=== PATIENT | male | born 1945 | race Caucasian/White ===

== ENCOUNTER 2024-01-12 07:57 | Outpatient (CLI) | payer MEDICARE ==
[2024-01-12 08:13] LABS: BASOPHILS % (AUTO) 0.3 %; EOSINOPHILS # (AUTO) 0.3 10^3/uL (0.0-0.7); HCT - HEMATOCRIT 37.2 % (42.0-52.0); HGB - HEMOGLOBIN 12.3 g/dL (14.0-18.0); LYMPHOCYTES # (AUTO) 1.5 10^3/uL (1.5-3.5); LYMPHOCYTES % (AUTO) 25.1 %; MEAN CORPUSCULAR HEMOGLOBIN 30.9 pg (27.0-31.0); MEAN CORPUSCULAR HGB CONC 33.1 g/dL (32.0-36.0); MEAN CORPUSCULAR VOLUME 93.5 fL (80.0-94.0); MEAN PLATELET VOLUME 9.3 fL (7.4-11.4); MONOCYTES # (AUTO) 0.5 10^3/uL (0.0-1.0); NEUTROPHILS # (AUTO) 3.6 10^3/uL (1.5-6.6); NEUTROPHILS % (AUTO) 60.4 %; PLT - PLATELET COUNT 226 10^3/uL (130-450); RED BLOOD COUNT 3.98 10^6/uL (4.70-6.10); RED CELL DISTRIBUTION WIDTH 13.3 % (12.0-15.0)
[2024-01-12 08:32] LABS: ALBUMIN 3.9 g/dL (3.2-5.5); ALKALINE PHOSPHATASE 62 IU/L (42-121); ALT ALANINE AMINOTRANSFERASE 13 IU/L (10-60); AST ASPARTATE AMINOTRANSFERASE 14 IU/L (10-42); BILIRUBIN,TOTAL 0.7 mg/dL (0.2-1.0); BUN - BLOOD UREA NITROGEN 17 mg/dL (6-20); CALCIUM 9.2 mg/dL (8.5-10.3); CARBON DIOXIDE - CO2 29 mmol/L (21-32); CHLORIDE 103 mmol/L (101-111); CHOL/HDL RATIO 3.5 (<5.0); CHOLESTEROL 169 mg/dL; GFR - MDRD 72 (>89); GLUCOSE 104 mg/dL (74-104); HDL CHOLESTEROL 48 mg/dL; LDL CHOLESTEROL,CALCULATED 96 mg/dL; SODIUM 136 mmol/L (135-145); TOTAL PROTEIN 7.8 g/dL (6.4-8.9); TRIGLYCERIDES 124 mg/dL; VLDL CHOLESTEROL 25 mg/dL
== END 2024-01-12 07:58 | disposition home or self-care (01) ==
LOC: LAB 07:57
PROVIDERS: ATTEND Nurse Practitioner Family
DX: I10 Essential (primary) hypertension (principal); E78.5 Hyperlipidemia, unspecified; Z12.5 Encounter for screening for malignant neoplasm of prostate; D47.2 Monoclonal gammopathy
CPT/HCPCS: 36415; 80053; 80061; 84443; 85025; G0103; 83721; 84153

== ENCOUNTER 2024-03-09 09:07 | Outpatient (CLI) | payer MEDICARE ==
--- NOTE | 2024-03-09 19:51 | XRAY Report ---
PROCEDURE: Wrist 3+V RT INDICATIONS: RIGHT WRIST PAIN TECHNIQUE: 3 views of the wrist were acquired. COMPARISON: None. FINDINGS: Bones: No acute fractures or dislocations. No suspicious bony lesions. Moderate to severe degenerat marianne changes of the 1st carpometacarpal joint. Small glenoid osteophyte is seen at the 2nd metacarpal head on oblique view. Mild changes of the 1st metacarpophalangeal joint and radioscaphoid joint. A fe w scattered postsurgical lucencies are seen. Soft tissues: No suspicious soft tissue calcifications. IMPRESSION: 1.Moderate to severe 1st carpometacarpal osteoarthrosis. Additional mild degenerative changes in the wrist. 2.Scattered juxta-articular lucencies may represent subchondral cystic changes versus osseous erosion s. Recommend correlation with clinical findings and possibly serologies to exclude an underlying infl ammatory arthritis. Reviewed by: Balaji Sheriff MD on 03/09/2024 7:49 PM PDT Approved by: Balaji Sheriff MD on 03/09/2024 7:49 PM PDT Station ID: [id number]
== END 2024-03-09 09:08 | disposition home or self-care (01) ==
LOC: DI 09:07
PROVIDERS: ATTEND Physician Assistant Surgical
DX: M18.11 Unilateral primary osteoarthritis of first carpometacarpal joint, right hand (principal); M19.031 Primary osteoarthritis, right wrist

== ENCOUNTER 2024-03-11 15:32 | Outpatient (CLI) | payer MEDICARE ==
--- NOTE | 2024-03-11 16:31 | Sleep Patient Instructions ---
Sleep Center Visit Summary - Patient Visit Information Reason for Visit: Initial consultation - Patient Instructions Additional Instructions: You will continue with CPAP therapy with pressure set at 5-12 cmH2O. You will be completing a sleep study, either an in-lab polysomnography (PSG) or home sleep study (HST). You will follow-up in the sleep care office after the sleep study is completed to hear the results and talk about therapy, if needed. We encourage you to continue to try to lose weight. Please follow up with the sleep care office after sleep study. - Clinic Information Contact: [facility] [address] [place] [address] [email or web address] T: [phone]
--- NOTE | 2024-03-11 16:44 | SLEEP CARE CONSULTATION ---
Information from patient questionnaire entered by Gill Bhatia. I have reviewed and concur with the information entered by Gill Bhatia. This document represents the service I personally performed and the decisions made by , Mari Quinones ARNP. History of Present Illness Service Date and Time: 03/11/2024 1532 Reason for Visit: New patient, Previously diagnosed sleep apnea, sleep apnea on CPAP therapy Chief Complaint: reports: Other (Moved - Have CPAP machine but wants me to be checked) Date of Onset: 2015 Usual bedtime: 10:15 PM Time it takes to fall asleep: 5 mins Snores at night: Yes (Without CPAP) Observed to quit breathing while asleep: No (Maybe) Sleeps alone due to snoring: No Number of times waking at night: Every once in a while Reasons for waking at night: reports: Bathroom Toss, Turn, or Twitch while sleeping: No Recalls having dreams: Yes (Very seldom) Usually gets out of bed at: 5:30 - 6 AM Feels refreshed in the morning: Yes (Usually) Morning headache: No Sleepy or fatigued during the day: Yes (Sometimes) Ever fallen asleep while driving: No Takes day naps: No Dreams during day naps: No Prior sleep studies: Yes Year and Where: 11/2016 approximately - [facility] Additional HPI information: ZHEN LLAMAS was previsously diagnosed to have unknown, AHI unknown, sleep apnea-hypopnea syndrome and comes in today to establish care for CPAP therapy. - Parasomnia Symptoms Ever been unable to move upon waking from sleep: No Walks in sleep: No Talks in sleep: No Ever acted out dreams in sleep: No Ever felt weak in the knees when startled or emotional: No Bothered by creepy, crawly, restless sensations in legs: No Problems with memory or concentration: Yes (Short term memory) CPAP Compliance Data - Data Reviewed with Patient Average duration of nightly device use: 6 h 4 mins Compliance rate %: 93 (363/365 days used) Current pressure setting (cmH2O): 5 - 12 Average residual AHI: 1.0 Central apnea: 0.1 Obstructive apnea: 0.3 Hypopnea: 0.5 Average large leak: 0.9 L/min Compliance data discussion: He has a Resmed Airsesnse 11 that was setup in 08/2022. He gets his supplies from [employer] in [place]. He has been using a full face ResMed F20 mask. Subjective Patient concerns: reports: air blowing in eyes (maybe, has eyes tearing and sometimes gritty feeling in corner of eyes), condensation in mask/hose (minimal). denies: aerophagia, mask discomfort, mask leak noise, nasal congestion, dry mouth, nose, throat, epistaxis Observed to snore while using device: No Current pressure setting perceived as: comfortable On therapy, patient: reports: sleeping better, awakening more refreshed, being more awake and alert during the day, more rested overall. denies: drowsiness while driving Initial Ketchum Sleepiness Scale score: 10 (03/11/2024) Past Medical History Past Medical History: reports: Hypertension, Arthritis, GERD, Other (Right knee pain, large prostrate, carpal tunnel syndrome both wrists, heart PVCs) Social History The patient is retied. Patient is and lives in [place]. Have you smoked in the past 12 months: No Alcohol use: No Caffeine use: No Family History Family history of sleep disordered breathing: Yes Family Hx Sleep Apnea: Other: Snoring (Children), Sleep apnea - Treated, Sleep apnea - Untreated Allergies and Home Medications Known drug allergies: Yes (as listed) Drug allergies reviewed: Yes Home medication list reviewed: Yes (as listed) Allergy and home medication list: Allergies amoxicillin Allergy (Verified 03/11/24 16:16) Respiratory cephalexin [From Keflex] Allergy (Verified 03/11/24 16:16) Rash ciprofloxacin Allergy (Verified 03/11/24 16:16) Respiratory clarithromycin Allergy (Verified 03/11/24 16:16) Respiratory codeine Allergy (Verified 03/11/24 16:16) Respiratory meclizine Adverse Reaction (Verified 03/11/24 16:16) meloxicam Adverse Reaction (Verified 03/11/24 16:16) Dizziness tramadol Adverse Reaction (Verified 03/11/24 16:16) Cramps Medications: Pantoprazole 40 mg daily NeilMed sinus rinse Prebiotic Powder Probiotic Fiber Multivitamin vitamin A, B-Complex, C, D, Fish oil PreserVision ARED2 Losartan 50 mg low dose Aspirin 81 mg Metoprolol ER 25 mg Zinc Finasteride 5 mg Gallbladder Enzymes Xarelto 20 mg Ducosate sodium 100 mg Simvastatin 40 mg, skip Mon & Fri Famotidine 40 mg Dicyclomine 10 mg, prn Loratidine 10 mg, prn Review of Systems Weight loss over past 5 years: 5-6 Cardiovascular: reports: high blood pressure, other (pvcs) Respiratory: reports: shortness of breath Gastrointestinal: reports: heartburn, abdominal pain Neurological: reports: gait or balance problems Ear/Nose/Throat: reports: sinus problems, dry mouth/throat (when wake up) Musculoskeletal: reports: joint pain, neck pain, back pain Immunologic: reports: sneezing Physical Exam Vital signs obtained and entered by: Mari Chávez NP Blood Pressure: 141/74 Cuff size: long (right) Heart Rate: 70 O2 Saturation: 97 Height: 5 ft 7 in Weight: 201 lb 3.2 oz Body Mass Index: 31.5 BMI Classification: Obese Neck circumference: 16 Heart: regular rate and rhythm Lungs: clear bilaterally Impression and Plan 1. Obstructive Sleep Apnea-Hypopnea Syndrome, unknown, with good treatment compliance and good apnea control. On CPAP therapy, the patient has better sleep quality and is more rested overall. Patient states his doctor wanted him reevaluated for his sleep apnea. He does not have a copy of his last sleep study with him. He needs a DME supplier locally since he has moved from [place]. Once we have a sleep study we can set him up with a new DME supplier. We will get authorization for the sleep study and follow-up with him after that is completed. Patient's apnea severity and rationale for treatment to reduce apnea, improve sleep quality and reduce cardiovascular and cerebrovascular events was reviewed. I also reviewed the benefit of consistent device use of CPAP for hypertension, arrhythmia, gastric reflux. 2. Obesity, unspecified. Currently patients BMI is 31.5. Obesity increases the risk of apnea, CPAP pressure requirements and overall health risks especially cardiovascular and diabetes. Thus patient is advised to lose weight. * Continue auto CPAP pressure at 5-12 cmH2O * PSG/HST to verify diagnosis and severity * Transfer DME once we have sleep study * Update supply prescription once we have sleep study. * Notify me if snoring with mask or feeling that the pressure is too much or too little * Attempt to lose weight * Call this office if any problems using CPAP * Return for follow up after sleep study, or sooner if concerns arise This note may have been all or partially generated using voice recognition software. Although every effort is made to edit content, insurance examiner errors may occur. Occasional wrongword or "soundalike" substitutions may have occurred due to the inherent limitations of voice recognition software. Please read the note carefully and recognize, using context, where these substitutions have occurred. Counseling Topics: Spare mask, Weight loss health impact Plan: PSG/HST to verify diagnosis and severity, followup after sleep study Visit Type: In Office Time Spent with Patient (minutes): 33 Provider Statement: I spent 100% of the Face to Face Visit with the patient with greater than 50% spent counseling the patient and coordination of care.
[2024-03-11 16:46] VITALS: BP 141/74; O2SAT 97
== END 2024-03-11 15:33 | disposition home or self-care (01) ==
LOC: SC 15:32
PROVIDERS: ATTEND Nurse Practitioner Family
DX: G47.33 Obstructive sleep apnea (adult) (pediatric) (principal); E66.9 Obesity, unspecified; Z68.31 Body mass index [BMI] 31.0-31.9, adult
CPT/HCPCS: 99203; G0463; 99212

== ENCOUNTER 2024-03-22 08:00 | Outpatient (CLI) | payer MEDICARE ==
--- NOTE | 2024-03-22 17:30 | XRAY Report ---
PROCEDURE: Knee 4+V RT INDICATIONS: PAIN IN RIGHT KNEE TECHNIQUE: 4 views of the knee(s) were acquired. COMPARISON: None. FINDINGS: Bones: No fractures or dislocations. Tricompartment degenerative osteophytes. Moderately severe medi al compartment joint space loss and severe lateral compartment joint space loss. No suspicious bony l esions. Soft tissues: No knee joint effusion. No suspicious soft tissue calcifications or masses. IMPRESSION: Severe degenerative arthritis of the right knee. Reviewed by: Vahe Tapia MD on 03/22/2024 5:29 PM PDT Approved by: Vahe Tapia MD on 03/22/2024 5:29 PM PDT Station ID: [id number]
== END 2024-03-22 23:59 | disposition home or self-care (01) ==
LOC: DI.WOS 08:00
PROVIDERS: ATTEND Physician Assistant Surgical
DX: M17.11 Unilateral primary osteoarthritis, right knee (principal)

== ENCOUNTER 2024-03-23 09:24 | Outpatient (CLI) | payer MEDICARE | END 2024-03-23 09:25 | disposition home or self-care (01) | LOC: SC 09:24 | PROVIDERS: ATTEND Nurse Practitioner Family | DX: G47.33 Obstructive sleep apnea (adult) (pediatric) (principal); R09.02 Hypoxemia; I10 Essential (primary) hypertension | CPT/HCPCS: 95806; G0399 ==